=== PATIENT | female | born 1945 | race Caucasian/White ===

== ENCOUNTER → 2018-03-13 | Day surgery (SDC) | payer OTHER, MEDICARE ==
[~2018-03-13] VITALS: Ht 154.9 cm; Wt 101.2 kg
[~2018-03-13] MED LIST: CAL-MAG TABLET1 EACH PO; CAYENNE450 MG PO; ESTER-C 500 MG1 EACH PO; GLUCOSAMINE &1 EAC1 PO; LIPITOR10 M1 PO; MULTIVITAMINS1 EAC9 PO; NORVASC2.5 M1 PO; OMEGA 3-6-9 11200 MG PO; PROBIOTIC1 EAC5 PO; UBIQUINOL100 MG PO; VITAMIN D1000 UNIT PO
--- NOTE | 2018-03-13 07:03 | History & Physical Pre-Op ---
General Information and HPI History of Present Illness: Ysabel is a 70-year-old female with a long-standing and worsening complaint of a painful tailor's bunion right foot. The patient has undergone an extended course of conservative care, including shoe gear and activity modification, rest , immobilization and courses of NSAIDs. None of this is yielded her any significant relief. The patient presents today for preoperative surgical consultation. The patient was referred to our office from Nickolas Boles DPM. Allergies/Medications Allergies: Coded Allergies: oxycodone (From PERCOCET) (dizzy 03/09/18) Home Med list Amlodipine (Norvasc) 2.5 MG TABLET 1 TAB PO DAILY BP (Reported) Ascorbate Calcium/Bioflavonoid (Tashia-C 500 MG Tablet) 500 MG-200 MG TABLET 1 TAB PO DAILY SUPPLEMENT (Reported) Atorvastatin Calcium (Lipitor) 10 MG TABLET 1 TAB PO DAILY CHOLESTEROL ( Reported) Bacillus Coagulans (Probiotic) (Unknown Strength) CAPSULE.DR (Unknown Dose) PO DAILY PROBIOTIC (Reported) Calcium Carb/Magnesium Cmb #10 (Sergio-Mag Tablet Chewable) (Unknown Strength) TAB.CHEW (Unknown Dose) PO DAILY SUPPLEMENT (Reported) Cayenne (Unknown Strength) CAPSULE (Unknown Dose) PO DAILY SUPPLEMENT ( Reported) Cholecalciferol (Vitamin D3) (Vitamin D) (Unknown Strength) TABLET (Unknown Dose) PO DAILY SUPPLEMENT (Reported) Fish Oil/Borage/Flax/Om3,6,9#1 (Sharon 3-6-9 1,200 MG Softgel) (Unknown Strength) CAPSULE (Unknown Dose) PO DAILY SUPPLEMENT (Reported) Gluc 2KCL/Chondr/Mahesh Hy/Hy AC (Glucosamine & Chondroitin Cap) (Unknown Strength ) CAPSULE (Unknown Dose) PO DAILY SUPPLEMENT (Reported) Multiple Vitamin (Multivitamins) 1 EACH TABLET 1 TAB PO DAILY SUPPLEMENT ( Reported) Ubiquinol (Unknown Strength) CAPSULE (Unknown Dose) PO DAILY SUPPLEMENT ( Reported) Past History Medical History Cardiovascular: hypertension Surgical History Pertinent Surgical History: non-contributory Review of Systems Review of Systems: Review of systems unremarkable except for that noted in history of present illness Exam & Diagnostic Data Physical Exam: Lungs clear bilaterally. Heart sounds rate and rhythm regular. Lower extremity physical exam demonstrates intact pedal pulses bilaterally. Both dorsalis pedis and posterior tibial arteries are palpable bilaterally. Patient without any sensory motor deficits. Deep tendon reflexes grossly intact. Patient noted to have significant pain with palpation at the lateral aspect of the right fifth metatarsal head. Assessment/Plan Assessment/Plan: Patient jakob's bunion right foot with underlying adventitious bursa. A lengthy discussion reviewing both surgical and conservative options was held the patient at bedside and the patient elected to go forward with surgery despite the risks. As Ranked By This Provider Problem List: 1. Other acquired deformities of left foot Attending MD Review Statement Attending Statement Attending MD Statement: examined this patient
--- NOTE | 2018-03-13 08:13 | Operative Report ---
Operative/Inv Procedure Report Surgery Date: 03/13/18 Name of Procedure: 1 tailor's bunionectomy right foot 2 intraoperative administration of ankle block anesthesia Pre-Operative Diagnosis: 1 painful tailor's bunion right foot Post-Operative Diagnosis: The same Estimated Blood Loss: scant Surgeon/Coremaker: Melisa TELLO,Quinton Boles DPM Anesthesia: moderate sedation, block Operative/Procedure Note Note: After obtaining informed consent the patient was brought to the operating room and placed on the operating table in the supine position. The patient isn't securely fastened to the operating table utilizing safety belt. After administration of IV sedation, 10 mL of 0.5% Marcaine plain was obtained about the patient's right ankle. 2 g of Ancef were delivered intravenously times one dose. A well-padded ankle tourniquet was placed about the patient's right lower extremity. The right foot was then scrubbed prepped and draped in usual aseptic manner. The right lower extremity was elevated to examine to limb, which point the ankle tourniquet was inflated 250 mmHg. Attention directed to the lateral aspect of the right foot, where a 4 cm linear incision was made over the distal fifth right. Skin was as a 15 blade and carried down subtenons tissues. All vital neurovascular structures were identified protected. A linear capsulotomy was then performed exposing the lateral eminence. This was then removed a sagittal bone saw. Any rough edges were smooth a bone rasp. The wound was irrigated with cuff Svensson normal sterile saline. The capture structures then repaired with 4-0 Vicryl and the septae sisters reapproximated 4-0 Vicryl. The skin edges were then reapproximated 4-0 nylon. Incision was dressed with Xeroform, 4 x 4's, Trevin and an Zeke wrap. The patient was noted tolerate both procedure and anesthesia well and the patient was transported from the operating room to recovery with vital signs stable best assess intact all digits right foot. Please cc a copy of this dictation to Nickolas Boles DPM.
== END ==
LOC: STS 06:07
DX: M21.621 Bunionette of right foot (principal); I10 Essential (primary) hypertension
CPT/HCPCS: 36415; 93005; 93010; J0131; J0690; J1100; J2001; J2250; J3490